=== PATIENT | female | born 1980 | race Caucasian/White ===

== ENCOUNTER 2016-11-28 06:34 | Day surgery (SDC) | payer BC ==
[~2016-11-28] VITALS: Ht 162.6 cm; Wt 60.3 kg
[~2016-11-28 06:34] MED LIST: ASPIR-LOW81 MG PO; CIPROFLOXACIN500 M1 PO; DEXILANT60 MG PO; EFFEXOR XR150 MG PO; EFFEXOR50 MG PO; ENDOCET 5-3251 EACH PO; FIBER500 MG PO; FIORICET 50-301 EACH PO; FIORICET WI1 CAPSULE PO; MAGNESIUM100 MG PO; MEDROL DOSEPAK4 MG PO; MINIPRESS5 MG PO; MOTRIN800 MG PO; NAPROSYN250 MG PO; NATALCARE RX1 TABLE1 PO; PANTOPRAZOLE SO40 MG PO; PRAZOSIN HCL1 MG PO; PROMETHAZINE HC25 M1 PO; PROTONIX40 MG PO; REGLAN5 MG PO; RELPAX20 MG PO; RIBOFLAVIN400 MG PO; ROBAXIN500 MG PO; TOPAMAX200 MG PO; TOPIRAMATE100 MG PO; TRAMADOL HCL50 MG PO; TRAZODONE HCL50 MG PO; TYLENOL EXTRA500 MG PO; VALIUM5 MG PO; VENLAFAXINE HCL75 M3 PO; VITAMIN B-2100 MG PO; Zoloft PO
[2016-11-28 07:21] VITALS: BP 107/73
[2016-11-28 10:42] VITALS: BP 94/56
== END 2016-11-28 12:40 | disposition home or self-care (01) ==
LOC: SDC 06:34 → 2SOUTH 14:28 → SDC 14:28 → EDSTATUS 14:28
DX: J34.2 Deviated nasal septum (principal); J34.3 Hypertrophy of nasal turbinates; F43.10 Post-traumatic stress disorder, unspecified; Z87.891 Personal history of nicotine dependence; Z81.8 Family history of other mental and behavioral disorders; Z83.49 Family history of other endocrine, nutritional and metabolic diseases
CPT/HCPCS: 93005; J0131; J0171; J1100; J1170; J1885; J2250; J2405; J2710; J2765; J3010